=== PATIENT | female | born 1965 | race Two or more races ===

== ENCOUNTER 2018-10-08 18:20 | Emergency (ER) | payer BC ==
[~2018-10-08] VITALS: Ht 157.5 cm; Wt 143.6 kg
[2018-10-08] MEDS ORDERED: aspirin 81mg tab.chew PO ONE (18:45)
[2018-10-08 19:01] LABS: BASOPHILS # (AUTO) 0.1 X10'3 (0-0.2); BASOPHILS % (AUTO) 1.2 % (0-1); EOSINOPHILS # (AUTO) 0.1 X10'3 (0-0.9); EOSINOPHILS % (AUTO) 1.4 % (0-6); HEMATOCRIT 39.3 % (35.0-45.0); HEMOGLOBIN 12.8 g/dl (12.0-16.0); LYMPHOCYTES # (AUTO) 1.7 X10'3 (1.1-4.8); LYMPHOCYTES % (AUTO) 25.7 % (21-51); MEAN CORPUSCULAR HEMOGLOBIN 27.6 PG (27.0-31.0); MEAN CORPUSCULAR HGB CONC 32.6 g/dL (33.0-36.5); MEAN CORPUSCULAR VOLUME 84.8 FL (78-98); MEAN PLATELET VOLUME 8.2 FL (7.4-10.4); MONOCYTES # (AUTO) 0.4 X10'3 (0-0.9); MONOCYTES % (AUTO) 5.9 % (2-12); NEUTROPHILS # (AUTO) 4.4 X10'3 (1.8-7.7); NEUTROPHILS % (AUTO) 65.8 % (42-75); PLATELET COUNT 375 X10'3 (140-440); RED BLOOD COUNT 4.64 X10'6 (4.20-5.60); RED CELL DISTRIBUTION WIDTH 18.5 % (11.5-14.5); WHITE BLOOD COUNT 6.8 X10'3 (4.5-11.0)
[2018-10-08 19:20] LABS: ALANINE AMINOTRANSFERASE 49 U/L (12-78); ALBUMIN 3.4 G/DL (3.4-5.0); ALBUMIN/GLOBULIN RATIO 0.9 (1.1-1.5); ALKALINE PHOSPHATASE 81 IU/L (46-116); ANION GAP 8 (8-16); ASPARTATE AMINO TRANSFERASE 19 U/L (10-37); BILIRUBIN,TOTAL 0.3 MG/DL (0.1-1.0); BLOOD UREA NITROGEN 18 MG/DL (7-18); BUN/CREATININE RATIO 15.9 (6.6-38.0); CALCIUM 9.1 MG/DL (8.5-10.1); CHLORIDE 106 MMOL/L (99-107); CREATININE 1.13 MG/DL (0.40-0.90); GLUCOSE 138 MG/DL (70-104); POTASSIUM 4.3 MMOL/L (3.5-5.1); SODIUM 142 MMOL/L (135-145); TOTAL PROTEIN 7.2 G/DL (6.4-8.2); eGFR 51 ML/MIN
[2018-10-08 19:22] LABS: MAGNESIUM 1.7 MG/DL (1.5-2.4)
[2018-10-08 20:09] VITALS: BP 130/80
== END 2018-10-08 20:11 | disposition home or self-care (01) ==
LOC: ER 18:21
DX: R07.81 Pleurodynia (principal); R51 Headache; R11.0 Nausea; Z91.09 Other allergy status, other than to drugs and biological substances
CPT/HCPCS: 36415; 71045; 80053; 83735; 83880; 84484; 85025; 93005; 99284

== ENCOUNTER 2023-09-22 19:08 | Emergency (ER) | payer BC ==
[~2023-09-22] VITALS: Ht 157.5 cm; Wt 116.4 kg
[2023-09-22 19:26] VITALS: TEMP 98.1
[2023-09-22] MEDS: oxyCODONE/APAP 5-325mg tablet PO ONE (20:17)
[2023-09-22] MEDS: acetaminophen 325mg tablet PO ONE (20:28)
[2023-09-22 23:03] VITALS: BP 122/81; PULSE 85; RESP 17; O2SAT 95
== END 2023-09-22 23:04 | disposition home or self-care (01) ==
LOC: ER 19:08
DX: S60.222A Contusion of left hand, initial encounter (principal); Z91.09 Other allergy status, other than to drugs and biological substances; Z91.018 Allergy to other foods; Z88.5 Allergy status to narcotic agent; Z87.891 Personal history of nicotine dependence; W19.XXXA Unspecified fall, initial encounter; Y93.89 Activity, other specified; Y92.89 Other specified places as the place of occurrence of the external cause; Y99.8 Other external cause status
CPT/HCPCS: 73080; 73130; 99284